=== PATIENT | male | born 1995 | race Caucasian/White ===

== ENCOUNTER 2022-04-21 05:18 | Emergency (ER) | payer SELFPAY | END 2022-04-21 06:32 | disposition home or self-care (01) | LOC: JD.ED 05:18 | DX: S83.412A Sprain of medial collateral ligament of left knee, initial encounter (principal); X50.1XXA Overexertion from prolonged static or awkward postures, initial encounter | CPT/HCPCS: 73562-26-LT; 73562-LT; 99283 ==